=== PATIENT | female | born 1965 | race Caucasian/White ===

== ENCOUNTER 2018-07-30 14:22 | Emergency (ER) | payer OTHER ==
[2018-07-30 14:38] VITALS: BP 126/73
[2018-07-30 16:29] LABS: BASOPHILS % (AUTO) 0 % (0-1); EOSINOPHILS # (AUTO) 0.05 x10^3/uL (0-0.4); EOSINOPHILS % (AUTO) 1 % (1-7); LYMPHOCYTES # (AUTO) 1.24 x10^3/uL (1-3.4); LYMPHOCYTES % (AUTO) 12 % (22-44); MD NO; MEAN CORPUSCULAR HEMOGLOBIN 38.3 pg (27.0-34.8); MEAN CORPUSCULAR HGB CONC 35.3 g/dL (32.4-35.8); MEAN CORPUSCULAR VOLUME 108.6 fL (80-100); MONOCYTES # (AUTO) 0.37 x10^3/uL (0.2-0.8); MONOCYTES % (AUTO) 4 % (2-9); NEUTROPHILS # (AUTO) 8.88 x10^3/uL (1.8-6.8); NEUTROPHILS % (AUTO) 84 % (42-75); PLATELET COUNT 240 x10^3/uL (130-400)
[2018-07-30] MEDS ORDERED: SODIUM CHLORIDE FLUSH 10ML SYR IVF ONE (16:30)
[2018-07-30 16:31] LABS: MICROSCOPIC INDICATED
[2018-07-30] MEDS ORDERED: MORPHINE SULFATE 4 MG/ML, 1ML ONE ×2 (16:36→17:51)
[2018-07-30 16:37] LABS: ALANINE AMINOTRANSFERASE 89 U/L (12-78); ALBUMIN 2.2 g/dL (3.4-5.0); ANION GAP 10 mmol/L (5-15); CALCIUM 8.1 mg/dL (8.5-10.1); CHLORIDE 101 mmol/L (98-107); CREATININE 0.91 mg/dL (0.55-1.02)
[2018-07-30 16:39] LABS: ALKALINE PHOSPHATASE 128 U/L (45-117); TOTAL PROTEIN 7.4 g/dL (6.4-8.2)
[2018-07-30 16:40] LABS: CULTURE INDICATED? YES
[2018-07-30 16:41] LABS: BILIRUBIN,TOTAL 18.7 mg/dL (0.2-1.0); INTERNATIONAL NORMALIZED RATIO 1.65 (0.93-1.1)
[2018-07-30] MEDS: MORPHINE SULFATE 4 MG/ML, 1ML IVPush PRN ×2 (16:52→17:54)
[2018-07-30] MEDS ORDERED: LIDOCAINE 1%, 10ML ONE (17:09)
--- NOTE | 2018-07-30 18:26 | NUR ---
Break RN: pt still in IR for paracentesis.
== END 2018-07-30 20:14 | disposition home or self-care (01) ==
LOC: ED 17:07
DX: K70.31 Alcoholic cirrhosis of liver with ascites (principal); N30.00 Acute cystitis without hematuria; E03.9 Hypothyroidism, unspecified
CPT/HCPCS: 36415; 49083; 71045; 80053; 81001; 83690; 85025; 85610; 85730; 87040; 87070; 87086; 87205; 89051; 93005; 96374; 96376; 99285; J3490; 99284